=== PATIENT | female | born 1955 | race Caucasian/White ===

== ENCOUNTER 2018-12-14 21:53 | Emergency (ER) | payer BC ==
[~2018-12-14] VITALS: Ht 167.6 cm; Wt 60.3 kg
[~2018-12-14 21:53] MED LIST: ALPR0.5T8; ASPI81TA31 PO; SIMV20TA6; VENL225T
[2018-12-14] MEDS ORDERED: ESCITALOPRAM 20 MG TABLET (22:03)
[2018-12-14] MEDS ORDERED: ALPRAZOLAM 0.5 MG TABLET (22:03)
[2018-12-14] MEDS ORDERED: BUPROPION HCL XL 300 MG TABLET (22:03)
[2018-12-14] MEDS ORDERED: TRAZODONE 100 MG TABLET (22:03)
[2018-12-14] MEDS ORDERED: CYCLOBENZAPRINE 5 MG TABLET (22:03)
[2018-12-14] MEDS ORDERED: SIMVASTATIN 20 MG TABLET (22:03)
[2018-12-14] MEDS ORDERED: HYDROMORPHONE 1 MG/1 ML DISP.SYRIN IV ONE (23:30)
[2018-12-14] MEDS ORDERED: HYDROMORPHONE 1 MG/1 ML DISP.SYRIN ONE (23:39)
--- NOTE | 2018-12-15 00:30 | NUR ---
PATIENT STATES "MY PAIN IS BETTER NOW."
--- NOTE | 2018-12-15 01:00 | NUR ---
Patient discharged to home in stable conditon WITH [facility] TAKING PATIENT HOME. Written and verbal after care instructions given. Patient verbalizes understanding of instructions.
[2018-12-15 01:02] VITALS: BP 118/66
== END 2018-12-15 01:03 | disposition home or self-care (01) ==
LOC: ER 21:54
DX: M25.562 Pain in left knee (principal); M25.571 Pain in right ankle and joints of right foot; M79.671 Pain in right foot; E78.5 Hyperlipidemia, unspecified; Z79.82 Long term (current) use of aspirin; Z79.899 Other long term (current) drug therapy; W10.9XXA Fall (on) (from) unspecified stairs and steps, initial encounter; Y93.89 Activity, other specified; Y92.89 Other specified places as the place of occurrence of the external cause; Y99.8 Other external cause status
CPT/HCPCS: 73564; 73610; 73630; 96374; 99283; J1170; A4663